=== PATIENT | male | born 1970 | race African-American/Black ===

== ENCOUNTER 2016-05-30 11:56 | Emergency (ER) | payer OTHER ==
[~2016-05-30] VITALS: Ht 180.3 cm; Wt 80.0 kg
[2016-05-30 11:57] VITALS: BP 140/95; PULSE 78; RESP 12; TEMP 98.1; O2SAT 99
[2016-05-30] MEDS ORDERED: cefTRIAXone 250 MG VIAL IM ONE (17:15)
[2016-05-30] MEDS ORDERED: AZITHROMYCIN PWD FOR SUSP 1 GM PACKET PO ONE (17:15)
[2016-05-30] MEDS ORDERED: LIDOCAINE HCL 1% 50 ML VIAL XX ONE (17:15)
--- NOTE | 2016-05-30 17:22 | PD ---
HPI Chief Complaint: Complaint Time Seen by Provider: 17:16 Travel History International Travel<30 days: No Contact w/Intl Traveler<30days: No Traveled to known affect area: No History of Present Illness HPI 46-year-old male presents to the emergency department for evaluation of penile discharge for 4 days. He also states he has a mild groin pain. Patient denies any fevers or chills. He has no medical problems and takes no medications. Patient does report a new sexual partner. He states he believes he gave the same thing to his girlfriend who is here to be tested as well. Patient denies any testicular pain or swelling. He denies any other complaints at this time. [facility] Past Medical History Medical History: Denies Significant Hx Diminished Hearing: No Past Surgical History Surgical History: No Previous Surgery Social History Alcohol Use: Yes (occ) Tobacco Use: Yes (1 ppd) Substance Use: No Allergies-Medications (Allergen,Severity, Reaction): Coded Allergies: No Known Allergies (Unverified , 05/30/16) Reported Meds & Prescriptions Reported Meds & Active Scripts Active No Active Prescriptions or Reported Medications Review of Systems Except as stated in HPI: all other systems reviewed are Neg Physical Exam Narrative GENERAL: Well-developed well-nourished male patient, ambulatory. Afebrile. SKIN: Warm and dry. HEAD: Normocephalic. Atraumatic. EYES: No scleral icterus. No injection or drainage. NECK: Supple, trachea midline. No JVD or lymphadenopathy. CARDIOVASCULAR: Regular rate and rhythm without murmurs, gallops, or rubs. RESPIRATORY: Breath sounds equal bilaterally. No accessory muscle use. Lungs sounds are clear to auscultation. GASTROINTESTINAL: Abdomen soft, non-tender, nondistended. No abdominal pain to palpation. MUSCULOSKELETAL: No cyanosis, or edema. BACK: No CVA tenderness. GENITOURINARY: Circumcised. Testes descended bilaterally without evidence of rotation. No lesions or erythema. No urethral discharge. She exam was done with nurse at bedside. Data Data Last Documented VS Vital Signs Date Time Temp Pulse Resp B/P Pulse Ox O2 Delivery O2 Flow Rate FiO2 05/30/16 17:12 17 05/30/16 11:57 98.1 78 140/95 99 Room Air MDM Medical Decision Making Medical Screen Exam Complete: Yes Emergency Medical Condition: Yes Medical Record Reviewed: Yes Differential Diagnosis STD versus urethritis versus dysuria Narrative Course 46-year-old male presents to the emergency department for violation penile discharge for 4 days after new sexual partner. Physical exam is consistent with possible Chlamydia versus gonorrhea. Urine is sent for chlamydia and gonorrhea testing. Patient is given Rocephin 250 mg IM and azithromycin 1 g by mouth. He is instructed to follow-up with the health department for further STD workup. He is instructed to get his sexual partners tested as well and waiting 7 days before resuming sex. Diagnosis Primary Impression: Possible exposure to STD Referrals: Primary Care Physician call for appointment Patient Instructions: General Instructions, Sexually Transmitted Diseases (ED) Additional Instructions: Follow-up with a primary care physician or the health department for further STD workup. Please have sexual partners tested and treated. Return to the emergency department for any acute worsening of his nose. Med/Other Pt SpecificInfo: No Change to Meds Scripts No Active Prescriptions or Reported Meds Disposition: 01 DISCHARGE HOME Condition: Stable Ladi Garcia May 30, 2016 17:22
[2016-05-30 18:02] VITALS: BP 128/74
[2016-05-30 20:39] LABS: CHLAMYDIA PCR DETECTED (NOT DETECT); NEISSERIA PCR DETECTED (NOT DETECT)
== END 2016-05-30 18:03 | disposition home or self-care (01) ==
LOC: NEPC 11:56
DX: R10.30 Lower abdominal pain, unspecified (principal)
CPT/HCPCS: 87491; 87591; 96372; 99283; J0696